=== PATIENT | female | born 1955 | race Caucasian/White ===

== ENCOUNTER 2022-10-07 00:40 | Day surgery (SDC) | payer MEDICARE, SELFPAY ==
[2022-10-04 16:39] VITALS: BMI 45.4
[2022-10-07] VITALS (10 sets, daily range): BP systolic 108–138; BP diastolic 56–84; PULSE 56–105; RESP 14–20; TEMP 36.5; O2SAT 92–97; BMI 45.1
--- NOTE | 2022-10-07 12:30 | ECG_ITS ---
Measurements Intervals [place] Rate: 63 P: 54 [place]: 192 QRS: 12 QRSD: 90 T: 47 QT: 439 QTc: 451 Interpretive Statements SINUS RHYTHM LOW QRS VOLTAGE IN PRECORDIAL LEADS BORDERLINE ECG COMPARED TO ECG 10/07/2022 12:39:38 SINUS RHYTHM NOW PRESENT Electronically Signed On 10-07-2022 14:16:31 [employer] by Chai Juarez D.O.
--- NOTE | 2022-10-07 13:43 | WPDANESEPPF ---
Anes - Initial Pre Proc Eval Procedure: Operation Date: 10/07/22 14:00 Proposed Procedures p Electrical Cardioversion - Ariel Saldana MD Date/Time: 10/07/22 13:43 Surgeon: Ariel Saldana MD Pre Op Diagnosis: A-fib Patient Data Age: 67 Gender: F Height: 1.6 m Weight: 115.7 kg Last Vital Signs Temp 97.7 F 10/07/22 12:44 Pulse 105 H 10/07/22 12:44 Resp 20 10/07/22 12:44 BP 138/84 10/07/22 12:44 Pulse Ox 92 10/07/22 12:44 O2 Del Method Room Air 10/07/22 12:44 Allergies Allergy/AdvReac Type Severity Reaction Status Date / Time No Known Allergies Allergy Verified 10/07/22 12:41 Home Medications Medication Instructions Recorded Confirmed Type L. acidophilus 5 mg-digestive 1 cap PO DAILY 10/04/22 10/04/22 History enzymes combo no.5 250 mg capsule albuterol sulfate 90 mcg/actuation 2 puff inhalation Q6H PRN Wheezing 10/04/22 10/04/22 History aerosol inhaler apixaban 5 mg tablet 5 mg PO DAILY 10/04/22 10/07/22 History ascorbic acid (vitamin C) 500 mg 500 mg PO DAILY 10/04/22 10/04/22 History tablet aspirin 81 mg tablet 81 mg PO DAILY 10/04/22 10/04/22 History atorvastatin 20 mg tablet 20 mg PO DAILY 10/04/22 10/04/22 History cholecalciferol (vitamin D3) 125 125 mcg PO DAILY 10/04/22 10/04/22 History mcg (5,000 unit) capsule coenzyme Q10 100 mg capsule 100 mg PO DAILY 10/04/22 10/04/22 History fexofenadine 60 mg tablet 60 mg PO DAILY PRN Allergy Symptoms 10/04/22 10/04/22 History flaxseed oil 1,300 mg-omega 3,6,9 1 cap PO BID 10/04/22 10/04/22 History 845 mg-117 mg-117 mg capsule glucosamine-chondroitin 250 mg-200 1 tablet PO DAILY 10/04/22 10/04/22 History mg tablet (Osteo Bi-Flex) losartan 100 1 tablet PO DAILY 10/04/22 10/07/22 History mg-hydrochlorothiazide 25 mg tablet magnesium oxide 400 mg PO BID 10/04/22 10/04/22 History multivitamin 1 tablet PO DAILY 10/04/22 10/04/22 History sotalol 80 mg tablet 80 mg PO BID 10/04/22 10/07/22 History Patient hx anesthesia problems: none Family hx anesthesia problems: none Results Review: All pre-operative results and documents have been reviewed as part of the pre-operative evaluation. [facility] Social History Social History Smoking packs per day: 1 Smoking cigarettes per day: 20.0 Years smoked: 25 Smoking pack-years: 25.00 Smoking status: Former smoker Tobacco type: cigarettes Second hand tobacco smoke exposure: Yes Alcohol intake: never Substance use: never Substance use type: does not use Living arrangements: with family Spiritual care concerns: No Anes - Eval Final PreProcedure Day of Procedure 10/07/22 13:43 Patient weight: morbidly obese Heart: regular rate and rhythm Lungs: clear to auscultation Airway: Mallampati scale class III Neurological: alert and oriented Last oral intake: >/= 8 hours ASA classification: IV Emergent: no Anesthetic plan: proceed Anesthesia type and monitoring: general GIVS and standard monitoring Results Review: All pre-operative results and documents have been reviewed as part of the pre-operative evaluation. Informed Consent: The patient's anesthetic plan and its attendant risks and benefits were discussed with the patient/family/POA. Questions were solicited and answers provided to the satisfaction of the patient/family/POA.
--- NOTE | 2022-10-07 14:15 | ECG_ITS ---
Measurements Intervals [place] Rate: 99 P: [place]: 0 QRS: 25 QRSD: 89 T: 25 QT: 369 QTc: 474 Interpretive Statements ATRIAL FIBRILLATION LOW QRS VOLTAGE- DIFFUSE LEADS BASELINE ARTIFACT- I, III ABNORMAL ECG NO PREVIOUS ECG AVAILABLE FOR COMPARISON Electronically Signed On 10-07-2022 12:55:14 [employer]ENTER PROFESSIONAL by hCai Juarez D.O.
--- NOTE | 2022-10-07 14:17 | WPDCARDPROC ---
Cardiac Cath Procedure Note Date of procedure:: 10/07/22 Performing physician:: Ariel Saldana MD Indication:: Persistent atrial fibrillation Brief clinical history:: This is a 67-year-old woman recently seen to have atrial fibrillation as an outpatient. She has been anticoagulated with apixaban and started on sotalol for antiarrhythmic drug therapy. She persists in atrial fib in an attempt at restoring sinus rhythm electrically has been scheduled for today. Procedure Procedure performed:: DC cardioversion Sedation/Medication given:: Sedation per the Anesthesia service Estimated blood loss:: No blood loss Procedure note:: Patient was brought to the GI lab where she was in the postabsorptive state and placed in the supine position with defibrillator patches in the AP position. She was sedated by the anesthesia service. Please see their note for those details. The defibrillator was synchronized at 200 joules output. When the patient was well sedated she was shocked 1 time at 200 joules restoring normal sinus rhythm. Findings:: As above Conclusion:: Successful uncomplicated DC cardioversion terminating atrial fib, restoring sinus rhythm using 200 joules x1 shock Ariel Saldana MD [facility]
== END 2022-10-07 15:45 | disposition home or self-care (01) ==
PROVIDERS: PCP Family Medicine; Visit Provider Specialist
PROC: 5A2204Z Restoration of Cardiac Rhythm, Single (ICD-10-PCS; principal; 2022-10-07 14:00)
DX: I48.19 Other persistent atrial fibrillation (principal); Z79.01 Long term (current) use of anticoagulants; Z79.51 Long term (current) use of inhaled steroids; Z79.82 Long term (current) use of aspirin; Z87.891 Personal history of nicotine dependence; E66.01 Morbid (severe) obesity due to excess calories; Z68.42 Body mass index [BMI] 45.0-49.9, adult
CPT/HCPCS: 92960; J2704